=== PATIENT | male | born 2000 | race African-American/Black ===

== ENCOUNTER 2019-09-12 10:10 | Emergency (ER) | payer MEDICAID ==
[~2019-09-12] VITALS: Ht 182.9 cm; Wt 88.0 kg
[2019-09-12] MEDS ORDERED: MORPHINE SULFATE 4 MG/ML CPJ (NOT FOR IM USE) IV STA (10:47)
[2019-09-12] MEDS ORDERED: SODIUM CHLORIDE 0.9% 1,000 ML IV ONE ×2 (10:47→13:03)
[2019-09-12] MEDS ORDERED: ONDANSETRON HCL 4MG/2ML INJ IV STA (10:47)
[2019-09-12 11:12] LABS: CHLORIDE 108 mEq/L (98-107)
[2019-09-12 11:13] LABS: INR 1.2; PROTHROMBIN TIME 12.3 sec (9.6-11.0)
[2019-09-12 11:18] LABS: HEMATOCRIT. 29.8 % (42.0-52.0); HEMOGLOBIN. 10.7 g/dL (14.0-18.0); MEAN CORPUSCULAR HEMOGLOBIN 33.1 pg (28.0-32.0); MEAN PLATELET VOLUME 8.2 fl (7.4-10.4); PLATELET 394 x1000/uL (130-400); RED BLOOD CELL COUNT 3.24 mill/uL (4.7-6.1); RED CELL DISTRIBUTION WIDTH 19.8 % (11.6-14.6)
[2019-09-12 11:39] LABS: NUCLEATED RED BLOOD CELLS 16 /100 WBC
[2019-09-12 11:40] LABS: PLATELET ESTIMATE NORMAL
[2019-09-12] MEDS ORDERED: MORPHINE SULFATE 4 MG/ML CPJ (NOT FOR IM USE) IV ONE (12:45)
[2019-09-12 13:34] VITALS: BP 125/73
[2019-09-12] MEDS ORDERED: KETOROLAC 30MG/ML VIAL IV ONE (13:45)
== END 2019-09-12 13:34 | disposition short-term general hospital (02) ==
LOC: ER 10:10 → CANBEDREQ 13:45
DX: D57.01 Hb-SS disease with acute chest syndrome (principal); D64.9 Anemia, unspecified; E80.6 Other disorders of bilirubin metabolism; M79.605 Pain in left leg; M79.604 Pain in right leg; R10.9 Unspecified abdominal pain
CPT/HCPCS: 36415; 71045; 80053; 83605; 83690; 84484; 85025; 85044; 85610; 93005; 96374; 96375; 96376; 99285; J1885; J2270; J2405; J7030; Z7610